=== PATIENT | male | born 1995 | race Two or more races ===

== ENCOUNTER → 2019-11-16 | Outpatient (CLI) | payer BC | END | disposition home or self-care (01) | LOC: Rad HDHVI 07:59 | PROVIDERS: ATTEND Internal Medicine | DX: I07.1 Rheumatic tricuspid insufficiency (principal); R07.9 Chest pain, unspecified; E78.5 Hyperlipidemia, unspecified; I10 Essential (primary) hypertension | CPT/HCPCS: 93306 ==

== ENCOUNTER → 2019-11-26 | Outpatient (CLI) | payer BC ==
[2019-11-26 11:13] LABS: Basophils # (auto) 0 10 ^3/uL (0-0.2); Basophils % (auto) 0.4 % (0.0-2.0); Eosinophils # (auto) 0.1 10 ^3/uL (0-0.8); Eosinophils % (auto) 1.5 % (0.0-7.0); Hematocrit 46.6 % (41.0-53.0); Hemoglobin 16.1 g/dL (13.5-17.5); Lymphocytes % (auto) 18.9 % (10.0-50.0); Mean Corpuscular Hemoglobin 30.9 pg (28.0-32.0); Mean Corpuscular Hgb Conc. 34.5 g/dL (32.0-36.0); Mean Corpuscular Volume 89.8 fL (80.0-100.0); Monocytes # (auto) 0.4 10 ^3/uL (0-1.3); Monocytes % (auto) 8.5 % (0.0-12.0); Neutrophils # (auto) 3.6 10 ^3/uL (1.6-8.6); Neutrophils % (auto) 70.7 % (37.0-80.0); Nucleated Red Blood Cells % 0.3 %; Platelet Count (auto) 171 10^3/uL (140-450); Red Cell Distribution Width 12.8 % (11.8-14.3); White Blood Cell 5.1 10^3/uL (4.4-10.8)
[2019-11-26 11:21] LABS: Urine Blood Negative /uL (Negative); Urine Specific Gravity 1.006 (1.001-1.035)
[2019-11-26 11:37] LABS: Potassium 4.3 mmol/L (3.5-5.1)
[2019-11-26 11:46] LABS: Free T4 (Free Thyroxine) 1.27 ng/dL (0.89-1.76)
[2019-11-26 11:52] LABS: Albumin 4.2 g/dL (3.4-5.0); BUN/Creatinine Ratio 11.4; Bilirubin, Total 0.8 mg/dL (0.2-1.0); Total Protein 7.5 g/dL (6.4-8.2)
== END | disposition home or self-care (01) ==
LOC: LAB 10:35
PROVIDERS: ATTEND Internal Medicine Cardiovascular Disease
DX: Z00.00 Encounter for general adult medical examination without abnormal findings (principal); C61 Malignant neoplasm of prostate; K90.9 Intestinal malabsorption, unspecified; E03.9 Hypothyroidism, unspecified; E29.1 Testicular hypofunction; N39.0 Urinary tract infection, site not specified; D51.9 Vitamin B12 deficiency anemia, unspecified; Z79.899 Other long term (current) drug therapy
CPT/HCPCS: 36415; 80053; 80061; 81003; 82306; 82607; 83036; 84403; 84439; 84443; 85025

== ENCOUNTER → 2019-11-26 | Outpatient (CLI) | payer BC ==
[~2019-11-26] VITALS: Ht 172.7 cm; Wt 88.9 kg
== END | disposition home or self-care (01) ==
LOC: Rad HDHVI 08:09
PROVIDERS: ATTEND Internal Medicine
DX: R42 Dizziness and giddiness (principal)
CPT/HCPCS: 82962; 93017

== ENCOUNTER → 2021-09-21 | Outpatient (CLI) | payer BC, MEDICAID ==
[~2021-09-21] VITALS: Ht 172.7 cm; Wt 99.8 kg
== END | disposition home or self-care (01) ==
LOC: Rad HDHVI 10:25
PROVIDERS: ATTEND Internal Medicine
DX: I49.9 Cardiac arrhythmia, unspecified (principal); R00.0 Tachycardia, unspecified; R07.89 Other chest pain; R00.2 Palpitations; F41.9 Anxiety disorder, unspecified
CPT/HCPCS: 93017